=== PATIENT | male | born 1960 | race Caucasian/White ===

== ENCOUNTER → 2020-10-14 | Outpatient (CLI) | payer BC ==
[~2020-10-14] MED LIST: ACET1TAB34 PO; CYCL10TA2 PO; IBUP-1131 PO; KENALOG-40 IJ ONE; LIDOCAINE 1% VIAL IJ ONE; LISI20TA21 PO
--- NOTE | 2020-10-14 13:12 | DIREP ---
PROCEDURE:FLUOROSCOPIC GUIDANCE NEEDLE PLACEMENT COMPARISON:None. INDICATIONS:OA RIGHT HIP, 0.3 sec fluoro, 20.00 mGy, 4cc Omni 240 used, 2 images TECHNIQUE:After explaining the risks, benefits, and alternatives, both oral and written informed consent was obtained from the patient for fluoroscopically-guided hip steroid injection. The patient's right hip area was sterilely prepped and draped. The proposed needle tract was anesthetized with 1% lidocaine solution. Under fluoroscopic guidance, a 22 gauge spinal needle was advanced into the right hip joint. A small amount of contrast was injected confirm positioning. A mixture of 6 cc 2% lidocaine, and 1 cc of Kenalog 40 was injected into the hip joint. The needle was then removed. The patient experienced no postprocedural complication. Total fluoroscopy time 0.3 minutes FINDINGS:Imaging documents needle placement and injection of the right femoral head and anatomic neck. CONCLUSION:Fluoroscopic-guided right hip joint injection. Dictated by: Keven Dolan MD on 10/14/2020 at 01:09 PM
== END | disposition home or self-care (01) ==
LOC: RAD 08:57
PROVIDERS: ATTEND Orthopaedic Surgery
DX: M16.11 Unilateral primary osteoarthritis, right hip (principal)
CPT/HCPCS: 20610; 77002; J2001; J3301; Q9966

== ENCOUNTER 2021-05-19 11:05 | Inpatient (IN) | payer BC ==
[2021-05-17 15:54] VITALS: BP 146/97
[2021-05-17 16:20] LABS: BASOPHIL # 0.1 10^3/uL (0.0-0.1); BASOPHIL % 0.6 % (0.0-0.2); EOSINOPHIL # 0.2 10^3/uL (0.0-0.2); EOSINOPHIL % 2.7 % (0.0-5.0); LYMPHOCYTES # 1.98 10^3/uL1 (1.0-4.8); LYMPHOCYTES % 23.5 % (24.0-44.0); MEAN CORP HGB 32.1 pg (26-34); MONOCYTES # 0.6 10^3/uL (0.3-0.8); NEUTROPHIL # 5.6 10^3/uL (1.8-7.7); NEUTROPHILS % 66.2 % (41.0-85.0); RED CELL DISTRIBUTION WIDTH 12.3 % (11.5-14.5)
[2021-05-17 16:27] LABS: BILIRUBIN,URINE NEGATIVE (NEGATIVE); UROBILINOGEN,URINE 0.2 E.U./dL (0.2)
[2021-05-17 16:38] LABS: CARBON DIOXIDE 23.9 mmol/L (20.0-32)
[2021-05-19] VITALS (18 sets, daily range): BP systolic 111–147; BP diastolic 66–97
[~2021-05-19] VITALS: Ht 195.6 cm; Wt 122.0 kg
--- NOTE | 2021-05-19 05:55 | PCM.EKG ---
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
[2021-05-19] MEDS: LACTATED RINGERS 1,000 ML IV SCH ×3 (09:03→23:10)
[~2021-05-19 11:05] MED LIST changes: +CELEBREX PO ONE; +CELEBREX PO STA; +CYCL10TA19 PO; -CYCL10TA2 PO; +DECADRON IV ONE; +DEXAMETHASONE 10 MG/ML VIAL ONE; +DIPRIVAN IV ONE; -KENALOG-40 IJ ONE; -LIDOCAINE 1% VIAL IJ ONE; +NEURONTIN ONE; +NEURONTIN PO ONE; +NS 250ML 250 ML ONE; +NS 3000ML IRR IR ONE; +NS IV ONE; +OFIRMEV IV ONE; +SENSORCAINE 0.5% VIAL ONE; +SODIUM CHLORIDE IRR BOTTLE IR ONE; +TRANEXAMIC ACID ONE; +ULTRAM PO ONE; +VANCOMYCIN 2 GRAM/400 ML BAG 400 ML IV ONE; +VANCOMYCIN HCL IV ONE; +VERSED ONE; +WATER ONE; +XYLOCAINE 2%-EPI 1:100,000 ONE
--- NOTE | 2021-05-19 11:13 | DIREP ---
PROCEDURE:XRAY HIP MIN 2VW-RT COMPARISON:[facility], CR, XRAY HIP MIN 2VW-LT, 06/28/2020, 01:48 PM. INDICATIONS:REQUESTED PRE OP BY DR POSADA. FINDINGS: BONES:Dysmorphic weight-bearing portion of the right femoral head with sclerosis. Sclerosis of the right acetabular sourcil JOINTS:Hemiarthroplasty left. Loss of joint space with sclerosis and osteophytes at the right hip. There has been remodeling of the right femoral head SOFT TISSUES:Normal. OTHER:No additional findings. CONCLUSION:Osteoarthritis right hip. Status post hemiarthroplasty left hip. Dictated by: Lea Guy MD on 05/19/2021 at 11:09 AM
[2021-05-19] MEDS ORDERED: WATER ONE (13:28)
--- NOTE | 2021-05-19 14:08 | PCM.HP ---
History of Present Illness Reason for Visit: R hip pain History of Present Illness 60 year old male presents with right hip pain for the past year that has gotten progressively worse. He has increased pain with daily activities limiting his ability to perform his daily activities, he has night pain, and a positive limp. He has tried NSAIDS and PT all with minimal relief. Past Medical History Cardiac: HTN Past Surgical History: Cholecystectomy, Total hip replacement (Left in 2020), Other (Bilat rotator cuffs) Past Social History Smoke: No Alcohol: occassional Drugs: None Lives: with Family Domestic Violence: Neg Travel Hx EBOLA RISK:Travel to/contact w: No Is pt experiencing any Ebola s: No Review of Systems Constitutional: No: Fever, Chills, Sweats, Weakness, Malaise, Other Eyes: No: Pain, Vision change, Conjunctivae inflammation, Eyelid inflammation, Other, Redness ENT: No: Ear pain, Ear discharge, Nose pain, Nose discharge, Nose congestion, Mouth pain, Mouth swelling, Throat pain, Throat swelling, Other Respiratory: No: Cough, Dry, Shortness of breath, SOB with excertion, Wheezing, Hemoptysis, Pleuritic Pain, Sputum, Wheezing, Other Cardiovascular: No: Chest Pain, Palpitations, Orthopnea, Paroxysmal Noc. Dyspnea, Edema, Lt Headedness, Other Gastrointestinal: No: Nausea, Vomiting, Abdominal Pain, Diarrhea, Constipation, Melena, Hematochezia, Other Genitourinary: No Dysuria, No Frequency, No Incontinence, No Hematuria, No Retention, No Other Musculoskeletal: leg pain (R hip pain) Skin: No: Rash, Lesions, Jaundice, Bruising, Other Neurological: No: Weakness, Numbness, Incoordination, Change in speech, Confusion, Seizures, Other Allergies: Coded Allergies: morphine (Verified Allergy, Severe, Anaphylaxis Shock, 05/17/21) Penicillins (Verified Allergy, Unknown, Hives, 05/17/21) Scheduled Lisinopril (Lisinopril), 1 TAB PO AM Scheduled PRN Ibuprofen (Ibuprofen), 1 TAB PO DAILY24 PRN for PAIN 4 - 6, (Reported) Discontinued Medications Acetaminophen With Codeine (Tylenol-Cod #3 Tablet), 1 TAB PO Q4 Discontinued Reason: No Longer Taking Cyclobenzaprine Hcl (Flexeril), 1 TAB PO TID Discontinued Reason: No Longer Taking VTE VTE Risk Total Score: 4 VTE Risk Score VTE Risk: Score 0-1 = Low Risk (Aggressive mobilization; early ambulation; no VTE prophylaxis required) Score 2: Moderate Risk (Intermittent/Pneumatic Compression Device OR Lovenox/Heparin/Coumadin) Score 3-4: High Risk (Intermittent/Pneumatic Compression Device AND Lovenox/Heparin/Coumadin) Score > or =5: Highest Risk (Intermittent/Pneumatic Compression Device AND Lovenox/Heparin/Coumadin) Antico:Hep/LMWH/Coum/Xarelto: Yes Mechanical device ordered: Yes VTE VTE Present on Admission: No Currently receiving anticoagul: No VTE Risk Total Score: 4 Exam Vital Signs Vital Signs Date Time Temp Pulse Resp B/P (MAP) Pulse Ox O2 Delivery O2 Flow Rate FiO2 05/19/21 10:34 62 16 138/82 (100) 99 Nasal Canula 2.00 05/19/21 08:45 98.0 General Appearance: Alert, Oriented X3, Cooperative, No acute distress HEENT: Atraumatic, PERRLA Respiratory: Clear to auscultation, Normal air movement Cardiovascular: Regular rate, Normal S1, Normal S2 Abdominal: Normal bowel sounds, Soft, No tenderness Extremities: Other (Right hip has 90 degrees of active flexion from supine, he has no internal rotation and 20 degrees of external rotation. No pain with palpation to greater trochanter.) Skin: No rash, No breakdown, No lesions Neuro: Normal speech, Normal tone, Sensation intact Psych/Mental Status: Mental status NL, Mood NL Assessment/Plan Assessment/Plan Assessment/Plan Assessment: OA of the Right Hip Plan: Right total hip arthroplasty Problems: (1) Osteoarthritis of right hip joint due to dysplasia Status: Chronic ICD Code: M16.31 - Unilateral osteoarthritis resulting from hip dysplasia, right hip SNOMED: [id number] Patient History: FHx: hemochromatosis G8 MOTHER, , Age:64 Hypertension G8 BROTHER No known health problems G8 FATHER G8 SISTER 19 CHILD 19 CHILD No Family History of: Alzheimer's disease Asthma Cerebrovascular disorder Chronic obstructive pulmonary disease Congestive heart failure Diabetes insipidus Diabetes mellitus CUBA AIKEN May 19, 2021 14:08
[2021-05-19] MEDS ORDERED: VANCOMYCIN HCL IV PRN (14:30)
[2021-05-19] MEDS ORDERED: NS IV PRN (14:30)
[2021-05-19] MEDS ORDERED: ULTRAM PO PRN (14:30)
[2021-05-19] MEDS ORDERED: CEPACOL SORE THROAT LOZENGE MM PRN (14:30)
[2021-05-19] MEDS ORDERED: ZOFRAN IV PRN (14:30)
[2021-05-19] MEDS ORDERED: AMBIEN PO PRN (14:30)
[2021-05-19] MEDS ORDERED: VALIUM PO PRN (14:30)
[2021-05-19] MEDS ORDERED: TORADOL IV PRN (14:30)
[2021-05-19] MEDS ORDERED: LACTATED RINGERS 1,000 ML IV SCH (14:30)
--- NOTE | 2021-05-19 14:54 | OPH ---
DATE OF SURGERY: 05/19/2021 DICTATOR NAME: Jose Manriquez MD PREOPERATIVE DIAGNOSIS: Osteoarthritis of the right hip. POSTOPERATIVE DIAGNOSIS: Osteoarthritis of the right hip. OPERATIVE PROCEDURE: Right total hip arthroplasty using Medacta AMIS size 7 cemented stem. The bursa-fit cup was a size 58. We used a 28 mm short ceramic head. SURGEON: Jose Manriquez MD ANESTHESIA: Spinal. BLOOD LOSS: 700 mL DRAINS: None. DESCRIPTION OF INDICATIONS: The patient is a 60-year-old male with a several year history of pain about the right hip. The pain got progressively worse over the last several months. He has to use a cane to ambulate. The patient complains of pain with just household ambulation and has difficulty working because of severe pain about the hip. His exam shows that he has got about 30-degree flexion contracture of his hip. He has about 90 degrees of active flexion. He has no internal or external rotation about the hip. X-ray showed that he is completely [id number] about the superior aspect of his hip with some collapse of the femoral head superiorly and laterally. The patient had about 1/2-3/4 inch of shortening on the right side. The patient was taken to the operating room today for total hip arthroplasty for pain relief. DESCRIPTION OF PROCEDURE: The patient was placed in the operating table in the supine position after being given a spinal anesthetic by the anesthesia department. Right lower extremity was sterilely prepped and draped. His foot had been padded and placed in the traction boot that was well padded. The leg was then attached to the traction unit. The patient had an anterior incision made about the hip. The incision was taken through the skin and the subcutaneous tissues. Bleeding was controlled with cautery. The patient had the IT band opened in line with the skin incision. The muscle belly was reflected posteriorly. The rectus fascia was opened and the rectus muscle was retracted medially. The circumflex vessels were identified and coagulated with the Aquamantys device. The patient had the fat pad over the anterior capsule excised. Capsular incision was made and retracted laterally and posteriorly as well as proximally. The femoral neck cut was made with the power saw and the femoral head was removed from the acetabulum with a corkscrew device. The patient had the fovea cleared of any soft tissue and the bleeding was controlled with the Aquamantys device. The peripheral osteophytes were removed with a rongeur. The patient had the labrum excised. The anterior capsule was released and a portion of the posterior capsule was released. The patient had the acetabulum sequentially reamed up to a 58. The patient had a trial 58 cup used and the trial had good position clinically and proper alignment and sizing radiographically. The trial component was removed and a 58 bursa-fit cup was impacted into position. The C-arm views intraoperatively showed appropriate tilt and version. The patient then had the leg placed in maximal external rotation as well as hyperextension. The canal was opened with a curette. The canal was then opened with the small and subsequently a large rasp. We sequentially rasped the femur up to a size 7. The trial reduction was done with a 7 femoral component, a short neck length. The 28 mm head and the 58 liner. The hip had good stability clinically. Radiographically, the components appeared to be in appropriate alignment and appropriate size. Clinically, the patient was felt to have good seating of the prosthesis distally, but proximally, there was some question about whether there was good support proximally and so we elected to cement the femoral stem. The trial components were removed. The canal brush was used to remove any cancellous bone from the proximal femur. A cement restrictor was placed at 13 cm below the femoral neck cut. The patient then had the irrigating canal brush used to irrigate the canal and then the tampon was applied to dry the canal. The cement was introduced and pressure packed. We cemented, a size 7 Medacta AMIS stem. The excess cement was removed with curettes. Once the cement had hardened, we used the -3.5 neck with a 28 mm ceramic head and the 58 dual articulating liner was impacted onto the Collazo taper neck and then reduced into the acetabular component. Clinically, there was good stability and no impingement. Radiographically, the sizing of the components appeared satisfactory. It appeared that we had corrected the leg length discrepancy. The wounds were then irrigated with Betadine-containing solution for 3 minutes. At that point, the Betadine was irrigated from the wound and the capsule was closed with a #2 PDS in interrupted manner. The tensor fascia was then closed with a #2 barbed PDS in a running manner and the subcutaneous was closed with a barbed 2-0 Monocryl in a running manner. Evonne were used to close the skin and a suction Prevena type dressing was applied. The patient was sent to recovery in stable condition. Jose Manriquez MD DR: KALYANI/JUDY TID: [id number] RECEIPT: [id number]
--- NOTE | 2021-05-19 15:33 | DIREP ---
PROCEDURE:XRAY HIP MIN 2VW-RT with additional AP of the pelvis COMPARISON:[facility], CR, XRAY HIP MIN 2VW-RT, 05/19/2021, 10:17 AM. INDICATIONS:POST OP FINDINGS: BONES:No fracture is seen. JOINTS:Interval postsurgical changes are seen with a right hip arthroplasty in good position. Previous left hip arthroplasty remains in good position. SOFT TISSUES:Postsurgical changes are seen in the soft tissues of the right hip. OTHER:No additional findings. CONCLUSION:Interval postsurgical changes with a right hip arthroplasty in good position. Dictated by: Naveen Kim M.D. on 05/19/2021 at 03:29 PM
[2021-05-19] MEDS ORDERED: LISI20TA21 PO (15:47)
[2021-05-19 15:50] LABS: BILIRUBIN,URINE NEGATIVE (NEGATIVE); UROBILINOGEN,URINE 0.2 E.U./dL (0.2)
[2021-05-19] MEDS ORDERED: ZESTRIL PO SCH (16:00)
--- NOTE | 2021-05-19 16:28 | NUR ---
DISCHARGE PLANNING CM VISITED WITH PATIENT AND SPOUSE ABOUT DISCHARGE PLANS AND NEEDS. PATIENT CURRENTLY LIVES IN [place] AND@HOME WITH SPOUSE. PATIENT IND PRIOR TO SURGERY AND HAS HIS OWN WALKER FROM LAST YEARS SURGERY. PATIENT CURRENTLY SEE'S DR LOPEZ IN [place]. PATIENT AND SPOUSE PLAN FOR PATIENT TO DISCHARGE HOME TO SELF CARE, REPORTS THAT THEY KNOW WHAT TO EXPECT BECAUSE THEY HAD THE SAME TYPE OF SURGERY LAST YEAR AND PATIENT DID NOT REQUIRE REHAB. DENIES ANY FURTHER CM NEEDS. CM WILL CONTINUE TO FOLLOW.
[2021-05-19 17:50] LABS: RED CELL DISTRIBUTION WIDTH 12.2 % (11.5-14.5)
[2021-05-19] MEDS: TYLENOL PO SCH (18:36)
[2021-05-19] MEDS: CELEBREX PO SCH (20:33)
[2021-05-20 00:15] VITALS: BP 126/78
[2021-05-20] MEDS: TYLENOL PO SCH ×3 (00:15→11:47)
[2021-05-20 04:45] VITALS: BP 125/78
[2021-05-20] MEDS: ULTRAM PO PRN ×2 (04:53→11:18)
[2021-05-20 04:58] LABS: MEAN CORP HGB 32.7 pg (26-34); RED CELL DISTRIBUTION WIDTH 12.1 % (11.5-14.5)
[2021-05-20] MEDS ORDERED: OFIRMEV 100 ML IV ONE (07:16)
[2021-05-20] MEDS: CELEBREX PO SCH (08:36)
[2021-05-20] MEDS ORDERED: PEPCID PO SCH (09:00)
[2021-05-20] MEDS ORDERED: COLACE PO SCH (09:00)
--- NOTE | 2021-05-20 09:30 | PRM.PN ---
Progress Note Subjective Date: May 20, 2021 Time: 08:45 Physician Notes: Up in bed, resting without distress Increased pain throughout the night Difficulty resting through the night Desiring to go home this afternoon if possible Objective Review IO, Exams,& Results Laboratory Tests Test 05/19/21 15:05 05/19/21 17:25 05/20/21 04:39 Urine Collection Type CATH Urine Color YELLOW Urine Appearance TURBID Urine Bilirubin NEGATIVE Urine Ketones 3+ Urine Specific [place] >=1.030 Urine pH 5.0 Urine Protein NEGATIVE Urine Urobilinogen 0.2 E.U./dL Urine Nitrate NEGATIVE Urine Leukocyte Esterase NEGATIVE Urine Glucose (Auto)(UA) NEGATIVE Urine Blood NEGATIVE Urine RBC NONE SEEN RBC/HPF Urine WBC NONE SEEN WBC/HPF Urine Squamous Epithelial Cells NONE SEEN Urine Amorphous Urates MANY Urine Bacteria NONE SEEN White Blood Count 17.9 10^3/uL 19.0 10^3/uL Red Blood Count 4.66 10^6/uL 3.95 10^6/uL Hemoglobin 14.9 g/dL 12.9 g/dL Hematocrit 42.5 % 35.3 % Mean Corpuscular Volume 91.2 fL 89.4 fL Mean Corpuscular Hemoglobin 32.0 pg 32.7 pg Mean Corpuscular Hemoglobin Concent 35.1 g/dL 36.5 g/dL Red Cell Distribution Width 12.2 % 12.1 % Platelet Count 202 10^3/uL 195 10^3/uL Mean Platelet Volume 9.7 fL 9.5 fL Current Medications Medications (Trade) Dose Ordered Sig/Mariaa PRN Reason Start Time Stop Time Status Last Admin Acetaminophen (Tylenol) 1,000 mg Q6HR 05/19/21 18:00 06/18/21 17:59 05/20/21 06:09 Celecoxib (Celebrex) 200 mg BID 05/19/21 21:00 06/18/21 20:59 05/20/21 08:36 Diazepam (Valium) 5 mg Q6HR PRN MUSCLE SPASM 05/19/21 14:30 06/18/21 14:29 05/20/21 07:21 Docusate Sodium (Colace) 100 mg DAILY 05/20/21 09:00 06/19/21 08:59 05/20/21 08:36 Famotidine (Pepcid) 20 mg DAILY 05/20/21 09:00 06/19/21 08:59 05/20/21 08:36 Ketorolac Tromethamine (Toradol) 30 mg Q6H PRN PAIN 7 - 10 05/19/21 14:30 06/18/21 14:29 05/19/21 21:33 Lisinopril (Zestril) 20 mg AM 05/19/21 16:00 06/18/21 15:59 Ondansetron HCl (Zofran) 4 mg Q4H PRN NAUSEA / VOMITING 05/19/21 14:30 06/18/21 14:29 Rivaroxaban (Xarelto) 10 mg DAILY 05/20/21 15:00 06/19/21 14:59 Throat Lozenges (Cepacol Sore Throat Lozenge) 1 each PRN PRN SORE THROAT 05/19/21 14:30 06/18/21 14:29 Tramadol HCl (Ultram) 50 mg Q6H PRN PAIN 4 - 6 05/19/21 14:30 06/18/21 14:29 Tramadol HCl (Ultram) 100 mg Q6H PRN PAIN 7 - 10 05/19/21 14:30 06/18/21 14:29 05/20/21 04:53 Vancomycin HCl 2 gm/Sodium Chloride 500 ml @ 175 mls/hr OT PRN MRSA Colonized 05/19/21 14:30 06/18/21 14:29 Zolpidem Tartrate (Ambien) 5 mg HS PRN INSOMNIA 05/19/21 14:30 06/18/21 14:29 CUBA Trevizo Ringer's Solution,Lactated (Lactated Rin (05/19/21 08:30) Lisinopril (Zestril) (05/19/21 16:00) Dc Brice (05/20/21 09:15) Saline Lock (05/20/21 09:15) Cbc W/O Diff (05/21/21 05:00) Heart: Regular rate, Normal S1, Normal S2 Abdomen: Normal bowel sounds, Soft, No tenderness Lungs: Clear to auscultation, Normal air movement Assessment & Plan: Problems/Diagnosis: (1) Osteoarthritis of right hip joint due to dysplasia Was this Present on Admission?: YES ICD Code: M16.31 - Unilateral osteoarthritis resulting from hip dysplasia, right hip SNOMED: [id number] Status: Chronic Plan Labs reviewed All questions and concerns answered Plan for PT/OT eval and treat today, will see how patient does and reassess his readiness to go home at that time ANTOINE NAGEL IV Work on pain management today He can be WBAT to the RLE CUBA AIKEN May 20, 2021 09:30
[2021-05-20 11:27] VITALS: BP 148/78
[2021-05-20] MEDS ORDERED: DIAZ5TAB PO (14:36)
[2021-05-20] MEDS ORDERED: TRAM50TA PO (14:36)
[2021-05-20] MEDS ORDERED: ASPI-667 PO (14:36)
--- NOTE | 2021-05-20 14:45 | PRM.DC ---
Discharge Summary Date of Discharge: May 20, 2021 Time of Request to Discharge: 14:39 Reason for Visit: R hip pain Patient History: FHx: hemochromatosis G8 MOTHER, , Age:64 Hypertension G8 BROTHER No known health problems G8 FATHER G8 SISTER 19 CHILD 19 CHILD No Family History of: Alzheimer's disease Asthma Cerebrovascular disorder Chronic obstructive pulmonary disease Congestive heart failure Diabetes insipidus Diabetes mellitus General: Alert, Oriented X3, Cooperative HEENT: Atraumatic, PERRLA Neck: Supple Lungs: Clear to auscultation, Normal air movement Heart: Regular rate, Normal S1, Normal S2 Abdomen: Normal bowel sounds, Soft, No tenderness Extremities: No clubbing, No cyanosis, No edema Skin: No rashes, No breakdown Neuro: Normal speech, Normal tone, Sensation intact Psych/Mental Status: Mental status NL Scheduled Aspirin (Aspirin), 1 TAB PO BID Lisinopril (Lisinopril), 1 TAB PO AM Scheduled PRN Diazepam (Valium), 1 TAB PO Q8HR PRN for MUSCLE SPASM Tramadol Hcl (Tramadol Hcl), 1-2 TAB PO Q6H PRN for PAIN 4 - 6 Discontinued Medications Acetaminophen With Codeine (Tylenol-Cod #3 Tablet), 1 TAB PO Q4 Discontinued Reason: No Longer Taking Cyclobenzaprine Hcl (Flexeril), 1 TAB PO TID Discontinued Reason: No Longer Taking Ibuprofen (Ibuprofen), 1 TAB PO DAILY24 PRN for PAIN 4 - 6, (Reported) Discontinued Reason: HOLD Sepsis Evaluation @ Discharge 05/20/21 09:41 Stroke Discharge Summary Discharge on Anti-Thrombotics: Yes Anti Thrombotic Medications: Aspirin 81mg Chew Tab Discharge on Statins: No Course Sepsis Screening Results: Posi: NEGATIVE Sepsis Qualifier/Stage: NO DEFINITE RISK DATE SEEN BY PHYSICIAN: May 20, 2021 TIME SEEN BY PROVIDER: 08:45 Duration or Total Time Spent w: 20 mins Vitals & review Data Vital Sign - Last 24 Hours 05/19/21 05/19/21 05/19/21 05/19/21 14:43 14:48 14:53 14:58 Temp 98.4 Pulse 71 70 71 71 Resp 15 15 15 15 B/P (MAP) 112/66 (81) 117/69 (85) 119/77 (91) 116/73 (87) Pulse Ox 95 95 95 94 O2 Delivery Nasal Canula Nasal Canula Nasal Canula Nasal Canula O2 Flow Rate 3.00 3.00 3.00 3.00 05/19/21 05/19/21 05/19/21 05/19/21 15:03 15:08 15:08 16:26 Temp 98.4 Pulse 70 72 71 Resp 15 15 18 B/P (MAP) 117/75 (89) 119/77 (91) 130/67 (88) Pulse Ox 94 96 98 O2 Delivery Nasal Canula Nasal Canula O2 Flow Rate 3.00 3.00 3.00 05/19/21 05/19/21 05/19/21 05/19/21 16:58 17:06 17:18 19:43 Temp 97.5 Pulse 72 82 Resp 18 18 B/P (MAP) 125/84 (98) Pulse Ox 97 95 O2 Delivery Room Air Nasal Cannula Nasal Cannula Nasal Canula O2 Flow Rate 3.00 3.00 FiO2 21 05/19/21 05/19/21 05/20/21 05/20/21 20:50 23:19 00:15 04:45 Temp 98.0 98.0 Pulse 82 82 74 Resp 18 18 18 B/P (MAP) 126/78 (94) 125/78 (94) Pulse Ox 95 94 97 O2 Delivery Room Air Room Air Nasal Canula Nasal Canula O2 Flow Rate 0.00 FiO2 21 05/20/21 05/20/21 09:35 11:27 Temp 97.9 Pulse 77 Resp 18 B/P (MAP) 148/78 (101) Pulse Ox 94 O2 Delivery Room Air Room Air Intake and Output 05/20/21 07:00 Intake Total 06976 ml Output Total 1390 ml Balance 9890 ml Laboratory Tests Test 05/19/21 15:05 05/19/21 17:25 05/20/21 04:39 Urine Collection Type CATH Urine Color YELLOW Urine Appearance TURBID Urine Bilirubin NEGATIVE Urine Ketones 3+ Urine Specific [place] >=1.030 Urine pH 5.0 Urine Protein NEGATIVE Urine Urobilinogen 0.2 E.U./dL Urine Nitrate NEGATIVE Urine Leukocyte Esterase NEGATIVE Urine Glucose (Auto)(UA) NEGATIVE Urine Blood NEGATIVE Urine RBC NONE SEEN RBC/HPF Urine WBC NONE SEEN WBC/HPF Urine Squamous Epithelial Cells NONE SEEN Urine Amorphous Urates MANY Urine Bacteria NONE SEEN White Blood Count 17.9 10^3/uL 19.0 10^3/uL Red Blood Count 4.66 10^6/uL 3.95 10^6/uL Hemoglobin 14.9 g/dL 12.9 g/dL Hematocrit 42.5 % 35.3 % Mean Corpuscular Volume 91.2 fL 89.4 fL Mean Corpuscular Hemoglobin 32.0 pg 32.7 pg Mean Corpuscular Hemoglobin Concent 35.1 g/dL 36.5 g/dL Red Cell Distribution Width 12.2 % 12.1 % Platelet Count 202 10^3/uL 195 10^3/uL Mean Platelet Volume 9.7 fL 9.5 fL Current Medications Medications (Trade) Dose Ordered Sig/Mariaa PRN Reason Start Time Stop Time Status Last Admin Acetaminophen (Tylenol) 1,000 mg Q6HR 05/19/21 18:00 06/18/21 17:59 05/20/21 11:47 Celecoxib (Celebrex) 200 mg BID 05/19/21 21:00 06/18/21 20:59 05/20/21 08:36 Diazepam (Valium) 5 mg Q6HR PRN MUSCLE SPASM 05/19/21 14:30 06/18/21 14:29 05/20/21 07:21 Docusate Sodium (Colace) 100 mg DAILY 05/20/21 09:00 06/19/21 08:59 05/20/21 08:36 Famotidine (Pepcid) 20 mg DAILY 05/20/21 09:00 06/19/21 08:59 05/20/21 08:36 Ketorolac Tromethamine (Toradol) 30 mg Q6H PRN PAIN 7 - 10 05/19/21 14:30 06/18/21 14:29 05/19/21 21:33 Lisinopril (Zestril) 20 mg AM 05/19/21 16:00 06/18/21 15:59 Ondansetron HCl (Zofran) 4 mg Q4H PRN NAUSEA / VOMITING 05/19/21 14:30 06/18/21 14:29 Rivaroxaban (Xarelto) 10 mg DAILY 05/20/21 15:00 06/19/21 14:59 Throat Lozenges (Cepacol Sore Throat Lozenge) 1 each PRN PRN SORE THROAT 05/19/21 14:30 06/18/21 14:29 Tramadol HCl (Ultram) 50 mg Q6H PRN PAIN 4 - 6 05/19/21 14:30 06/18/21 14:29 Tramadol HCl (Ultram) 100 mg Q6H PRN PAIN 7 - 10 05/19/21 14:30 06/18/21 14:29 05/20/21 11:18 Vancomycin HCl 2 gm/Sodium Chloride 500 ml @ 175 mls/hr OT PRN MRSA Colonized 05/19/21 14:30 06/18/21 14:29 Zolpidem Tartrate (Ambien) 5 mg HS PRN INSOMNIA 05/19/21 14:30 06/18/21 14:29 LEVEL 1 SEPSIS INFECTION CRITE: Recent Invasive Procedure LEVEL 2-SIRS (LIST ALL THAT AP: None/Not assessed Cardiovascular Evidence: Not Assessed or None Hematologic Evidence: None/Not assessed Hepatic Evidence: None/Not assessed Metabolic Evidence: None/Not assessed Neurological Evidence: None/Not assessed Respiratory Evidence: None/Not assessed Renal Evidence: None/Not assessed O2 Sat by Pulse Oximetry: 94 Oxygen Flow Rate: 0.00 Plan Problems: (1) Osteoarthritis of right hip joint due to dysplasia Status: Resolved ICD Code: M16.31 - Unilateral osteoarthritis resulting from hip dysplasia, right hip SNOMED: [id number] Discharge Date: May 20, 2021 Dicharge DX: R Total Hip Arthoplasty Discharge Disposition: Stable Plan May DC home today Can be WBAT to RLE, use a walker Will have him follow up in the office on 05/26/21 Continue Tramadol and tylenol for pain Start ASA 81mg PO BID x30 days for VTE prophylaxis Leave dressing in place until next appointment CUBA AIKEN May 20, 2021 14:45
[2021-05-20] MEDS ORDERED: ACET500T73 PO (14:53)
[2021-05-20] MEDS ORDERED: XARELTO PO SCH (15:00)
[2021-05-20 15:25] VITALS: BP 148/78
--- NOTE | 2021-05-20 15:25 | NUR ---
DISCHARGE PT DISCHARGED AT THIS TIME IN STABLE CONDITION. IV DISCONTINUED. PT TOLERATED WELL. CATHETER IN TACT. LABS AND VITALS OBTAINED DURING VISIT DISCUSSED WITH PT. PT PROVIDED EDUCATION REGARDING IMPORTANCE OF POST-OP VTE PROPHYLAXIS AND RISKS ASSOCIATED. PT PROVIDED EDUCATION REGARDING WEIGHT BEARING STATUS TO RIGHT LOWER EXTREMITY. PT PROVIDED EDUCATION REGARDING POST-OP PAIN MANAGEMENT. PT PROVIDED EDUCATION REGARDING MEDICATIONS TO BE CONTINUED, DISCONTINUED, AND INITIATED. PT INFORMED OF NEED TO MAKE F/U APPT WITH DR. POSADA'S OFFICE THIS COMING WEEK. UNABLE TO VISUALIZE SURGICAL WOUND OR OBTAIN PICTURES DUE TO SURGICAL DRESSING IN PLACE. DRESSING CHANGE TO BE COMPLETED AT FIRST F/U APPT. PT NOR VERBALIZE FURTHER QUESTIONS AT THIS TIME. PT TAKEN TO PRIVATE AUTO VIA WHEELCHAIR. STEADY GAIT. THIS NURSE RELINQUISHES CARE OF PT AT THIS TIME.
== END 2021-05-20 15:25 | disposition home or self-care (01) | DRG 470 ==
LOC: MS 15:50
PROVIDERS: ADMIT Orthopaedic Surgery; ATTEND Orthopaedic Surgery
PROC: 0SR9039 Replacement of Right Hip Joint with Ceramic Synthetic Substitute, Cemented, Open Approach (ICD-10-PCS; principal; 2021-05-19 10:40)
DX: M16.31 Unilateral osteoarthritis resulting from hip dysplasia, right hip (principal); M21.70 Unequal limb length (acquired), unspecified site; Z96.642 Presence of left artificial hip joint; Z88.5 Allergy status to narcotic agent; Z88.0 Allergy status to penicillin; Z82.49 Family history of ischemic heart disease and other diseases of the circulatory system
CPT/HCPCS: 36415; 73502; 76000; 80053; 81001; 81003; 85025; 85027; 85610; 87070; 93005; 97161; 97165; 97530; A4217; C1713; G0378; J0131; J1100; J1885; J2250; J3490; J7050; J7120; 97116-GP; C1776; J8499